=== PATIENT | female | born 1980 | race Caucasian/White ===

== ENCOUNTER → 2018-01-06 14:49 | Outpatient (CLI) | payer MEDICAID, SELFPAY ==
[2018-01-15 11:46] LABS: HPV HC, High Risk Positive (Negative)
== END ==
PROVIDERS: Visit Provider Obstetrics & Gynecology
DX: Z12.4 Encounter for screening for malignant neoplasm of cervix (principal)
CPT/HCPCS: 87624; 88175; G0145

== ENCOUNTER → 2018-01-27 15:34 | Outpatient (CLI) | payer MEDICAID, SELFPAY ==
[2018-01-27 19:36] LABS: Chlamydia Trachomatis by PCR Negative (Negative); Neisserai gonorrhoeae by PCR Negative (Negative); Probe Check PASS; Sample Adequacy Control PASS; Specimen Processing Control PASS
== END ==
PROVIDERS: Visit Provider Obstetrics & Gynecology
DX: Z11.3 Encounter for screening for infections with a predominantly sexual mode of transmission (principal)
CPT/HCPCS: 87491; 87591

== ENCOUNTER 2018-03-01 09:13 | Day surgery (SDC) | payer MEDICAID, SELFPAY ==
--- NOTE | 2018-02-28 21:46 | PCM.HP.BLA ---
History and Physical Date of Admission: 03/01/18 Surgical History and Physical Olivia Titus, a 37 year old female 1 0 0 0 1, presents for Dx H/S, removal impacted IUD, LST with Filsche clips and bilateral distal salpingectomy. -- U/S showed IUD impacted in fundus of uterus. Desires permanent sterilization. She has considered this form of control for quite some time. MEDICATIONS HISTORY: Patient is also takin. ALBUTERAL, Take as Directed 2. Advair Diskus 100 mcg-50 mcg/dose powder for inhalation, As Directed daily 3. Flonase Allergy Relief 50 mcg/actuation nasal spray,suspension, As Directed daily ALLERGIES: macrobid, Visual disturbances, Macrobid and Visual disturbance Infections - Chicken pox and CHILD Illnesses - asthma Accidents - no injuries of consequence Hospitalizations - Childbirth Review of Systems: GENERAL - Denies fever, or chills SKIN - Denies skin changes EYES - Denies visual changes EARS - Denies difficulty hearing NOSE - Denies nasal congestion or bleeding MOUTH - Denies sore throat or difficulty swallowing NECK - Denies pain or swelling RESPIRATORY - Denies shortness of breath or wheezing CARDIOVASCULAR - Denies palpitations or chest pain GASTROINTESTINAL - Denies nausea, vomiting, diarrhea, constipation GENITOURINARY - Denies dysuria, frequency of urination, incontinence of urine MUSCULOSKELETAL - Denies joint or muscle pain NEUROLOGICAL - Denies localized numbness or weakness PSYCHIATRIC - Denies depression or anxiety ENDOCRINE - Denies heat or cold intolerance, weight loss or gain HEMATO-IMMUNOLOGIC - Denies excesive bleeding with cuts SOCIAL HISTORY: Alcohol Use - drinks occasionally Smoking - occasional--advised to quit Diet - balanced Diet Lifestyle - moderate stress lifestyle and Exercise - active Seat Belt Use - always [employer]er - [employer]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 Spouse-Sig Other Occupation - Disability Children Name(s) - [place] Control - Mirena IUD FAMILY HISTORY: Family history of MENTAL RETARDATION. Maternal history of DM II. MENSTRUAL HISTORY: LMP Known?- Mirena IUDAmount/Duration - 1-2 days, Regularity - Irregular, Frequency - 28 days, LMP - 01/27/18 PAST PREGNANCIES: Total Pregnancies - 1; Full Term Pregnancies - 1; Premature - 0; Abortions, Induced - 0; Abortions, Spontaneous - 0; Ectopics - 0; Multiple Births - 0; Living Children - 1 SURGICAL HISTORY: 1. 05/11/1997 [place] Teeth Removal 2. 09/08/2004 D and C ; Arash Katz M.D. - EMILY PHYSICAL EXAM BP- 116/74 Sitting, Right arm, large cuff Weight- 305.24100 lbs Height- 65 inch BMI:50.86 CONSTITUTIONAL - NAD, well nourished, and well developed SKIN - No rash, lesions, or ulcers HEENT - Normocephalic, PERRLA, EOMI NECK - no nodes, no nuchal rigidity and thyroid normal size and texture LYMPH NODES - Palpation of lymph nodes in neck and groins within normal limits LUNGS - CTA x2 without wheezes, crackles or rales CARDIAC - Regular rate and rhythm without rubs, murmurs, or gallops BREAST - no dominant masses, no tenderness, no axillary adenopathy, no nipple discharge and no skin changes ABDOMEN - Without hepatosplenomegaly, distention, masses, rebound, or guarding; normal bowel sounds, no hernias EXTREMITIES - No edema or calf tenderness NEUROLOGICAL - Cranial nerves II-XII grossly intact PSYCHIATRIC - A and O to time, place, person, mood and affect External Genitial Vagina - non-tender without lesions Urethra/Urethral Meatus - non-tender Bladder - non-tender Vagina - vaginal sanford are pink and moist without loss of rugae and no evidence of atropy Cervix - without cervical motion tenderness and has normal size and features without evident lesions and IUD string not seen or felt Uterus - multiparous size 6 cm & wt 75-125 g Adnexa - clear without massess or tenderness ASSESSMENT/PLAN: 1. Surveillance Of Intrauterine Contraceptive Device String not seen or palpated. U/S showed IUD impacted in uterine fundus. Wants permanent sterilization. Plan Dx H/S, IUD removal, L/S BTO with filsche clips and distal bilateral salpingectomy. Discussed RBAs and all questions answered.
[2018-03-01 09:58] VITALS: BP 128/89; PULSE 91; RESP 16; TEMP 37.2; O2SAT 97; BMI 51.0
[2018-03-01 10:01] LABS: Internal QC Validated? YES +Cl - CLEAR BKGD; Pregnancy, Urine Negative Negative
--- NOTE | 2018-03-01 10:03 | EKG12_ITS ---
Test Reason : PRE OP Blood Pressure : / mmHG Vent. Rate : 087 BPM Atrial Rate : 087 BPM P-R Int : 120 ms QRS Dur : 082 ms QT Int : 354 ms P-R-T Axes : 028 047 044 degrees QTc Int : 425 ms Normal sinus rhythm Normal ECG Confirmed by COLLETTE WHITEHEAD, TITA ([id number]), health editor EULA MILLS ([id number]) on 03/05/2018 1:34:56 PM Referred By: Arash Katz Confirmed By:TITA MURDOCK MD
[2018-03-01 10:36] LABS: Hematocrit 40.9 % (37-47); Hemoglobin 13.2 g/dl (12.0-15.0); Mean Corp Hgb Conc 32.3 g/gl (32-36); Mean Corpuscular Volume 86.8 fL (81-99); Mean Platelet Vol. 10.3 fl (6.2-12.0); Platelet Count 254 K/mm3 (150-450); RBC Distribution Width CV 14.4 % (11.6-14.6); RBC Distribution Width SD 45.5 fl (35.1-43.9); Red Blood Count 4.71 M/mm3 (4.2-5.4); White Blood Count 8.9 K/mm3 (4.4-11.0)
[2018-03-01 10:40] LABS: International Normalized Ratio 1.1; Partial Thromboplast Time 31.2 Seconds (24.1-36.2); Prothrombin Time (Protime)PT. 14.2 SECONDS (11.7-14.9)
--- NOTE | 2018-03-01 10:45 | EMB_PTH ---
PATIENT: CATHERINE BURR LOC: [facility] – [place] U#:[id number] AGE/SX: 37/F ROOM: RE03/01/[address]: Dr. Arash Katz MD : 1980 BED: DIS: 03/01/2018 SPEC #: [id number] RECD: 03/01/18 16:12 STATUS: JORDAN VITOR #: [id number] SAMMI: 03/01/18 10:[address]: Arash Katz DEPT: SURGICAL PATHOLOGY RECD BY: Yony Stein ENTERED: 03/02/18 11:46 SP TYPE: ENDOM BX/C CAMILO DR: WANDA SanchesC Tissues: A - Endometrium, NOS B - Fallopian tube Procedures: Surgery Specimen Level II Surgery Specimen Level IV HEADER OPERATION: IUD removal, dilation and curettage PRE-OP DIAGNOSIS: Surveillance of intrauterine contraceptive device; desire for sterilization TISSUE SUBMITTED: A - Endometrial curettings, B - Bilateral fallopian tubes MICROSCOPIC DIAGNOSIS A. Endometrial curettings: Extensive exogenous hormone effects. Fragments of benign endocervical mucosa with chronic inflammation and fragments of benign ectocervical epithelium. Intrauterine device (gross only). B. Bilateral fallopian tubes, salpingectomy: Bilateral fallopian tubes including fimbrial ends, no pathologic diagnosis. MIGUEL A:yazan 03/03/18 MICROSCOPIC DESCRIPTION Slides are reviewed. GROSS DESCRIPTION A - Received in fixative is one container labeled with the patient's name and designated endometrial curettings. The specimen consists of multiple fragments of hemorrhagic soft tissue mixed with blood clot that in aggregate measure 5 x 3 x 0.8 cm. Also present in the container is a T-shaped white intrauterine device. The horizontal arm measures 3 cm in length and vertical arm measures 3 cm in length. A black two-prong suture is also present measuring 5.5 cm in length. The entire specimen is submitted in five cassettes. Intrauterine device is for gross identification only. B - Received is one container labeled with the patient's name and designated bilateral fallopian tubes. The specimen consists of bilateral fallopian tubes including fimbrial ends measuring 4 cm in length and 0.6 cm in diameter and 5 cm in length and 0.6 cm in diameter. Sections do not reveal any mass lesion. The fallopian tubes are not identified as right or left. Sections reveal unremarkable cut surfaces. Rehab Technician sections are submitted in two cassettes with each cassette containing one fallopian tube. / MIGUEL A:ayzan 03/02/18 TC:5 CPT: 96328 x2, 50033
[2018-03-01 10:47] LABS: Scan Indicated on CBC? Y/N NO
--- NOTE | 2018-03-01 11:11 | OP.PCM_ITS ---
Operative Report Date of Procedure: 03/01/18 Surgeon: Arash Katz MD, FACOG Stock Unloader: JENNIFER Smith Anesthesia: Saroj Alvarado CRNA Type of Anesthesia: General Endotracheal Pre-Op Diagnosis: Desires Sterilization, Impacted IUD Postoperative diagnosis: Desires Sterilization, Impacted IUD Procedure: Bilateral Laparoscopic Tubal Occlusion with Filshie Clips and Partial Bilateral Distal Salpingectomy, Dilation and Curettage, Removal of Impacted IUD Findings: 8 cm uterus with normal appearing fallopian tubes and ovaries. 8 cm endometrial cavity with no polyps or fibroids noted but the lining was thickened for an IUD being present. Mirena IUD noted at fundus of uterus and removed without difficulty with polyp forceps. Cervix noted to be high in vagina which would make vaginal hysterectomy technically difficult unless performed robotically. Indications: This is a 37 year old patient who has the above diagnosis. She has considered sterilization for quite some time. She is aware of the permanent nature of the procedure, the failure rate of 1-2%, and the availability of other nonpermanent control options. All questions were answered to reconsider the patient well-informed. Procedure: The patient was taken to the operating room where after induction of general anesthesia, she was placed in the dorsolithotomy position and prepped and draped in the usual sterile fashion. The bladder was drained of approximately 50 cc of clear yellow urine with a catheter. Anterior cervix was grasped with the tenaculum and dilated to about 4-5 mm. Cervix was dilated to about 4-5 mm and uterus and after the IUD was removed the uterus was gently curetted removing all contents. Conn cannula was placed and attention was turned toward the laparoscopic portion of the procedure. Approximately 30 cc of half percent ropivacaine was injected subumbilically suprapubically and midway between. A 5 mm bladeless trocar was placed subumbilically and intraperitoneal placement confirmed. After CO2 insufflation was complete, a 7/8 mm bladeless trocar was introduced suprapubically. The above findings were noted. A micro-grasper alligator was then placed midway between these 2 ports for tubal manipulation. Each fallopian tube was identified to its fimbriated end and an Enseal device was used to divide the mesosalpinx leaving approximately 1-2 cm stump of fallopian tube on each side. Filshie clips were placed on the stump of each fallopian tube. The peritoneal cavity and upper abdomen were examined and noted to be normal. Photographs were taken. Laparoscopic instruments with as much CO2 gas as possible were removed and incisions were closed with interrupted 4-0 Monoc[address] suture. Steri-Strips pl aced across the incisions. Patient tolerated procedure well was taken to recovery room in satisfactory condition sponge instrument and needle counts were all reportedly correct. Estimated blood loss for the case was minimal. There were no apparent complications of the surgery. Cefotan 2 g IV was given prior to beginning the operative procedure. Specimens to pathology was bilateral distal fallopian tubes and endometrial curettings with IUD.
--- NOTE | 2018-03-01 11:12 | DCINST_ITS ---
Discharge Diet: No Restrictions - Increase fluid intake for the next 48 hours. Discharge Activity: Return to Normal Activity, May Drive - when you are no longer taking pain/narcotic medicines., May Shower, May Take a Tub Bath May resume sexual activity in: 2 weeks Additional Activity Instructions:: Ambulate often the next week after surgery. Nothing in the vagina for 5 days. Call your doctor if your incision/area has: Continuous Slow Oozing, Sudden Increased Bleeding, Increased Pain/ Swelling, Increased Redness, Foul Smelling Discharge Call your doctor if you observe: Fever of 101 or Higher, Inability to urinate, Inability to have a bowel movement, Using more than one pad per hour Allergies/Adverse Reactions: Allergies nitrofurantoin [From Macrobid] Adverse Reaction (Verified 02/26/18 10:43) Other Medications to take at Discharge Albuterol Inhaler [Ventolin Hfa (SP)] 1 - 2 puff INHALATION Q4H PRN PRN 02/26/18 Fluticasone 0.05% [Flonase Nasal [place]] 2 spray NASAL DAILY 02/26/18 Fluticasone/Salmeterol [Advair 100-50 Diskus] 1 puff IH DAILY 02/26/18 Omeprazole [Prilosec] 40 mg PO DAILY 02/26/18 Hydrocodone/Acetaminophen [Plato 5-325 Tablet] 1 ea PO Q6H PRN PRN 7 Days #10 tab 03/01/18 The following prescriptions were given: Hydrocodone/Acetaminophen [Plato 5-325 Tablet] 1 ea PO Q6H PRN PRN 7 Days #10 tab PRN Reason: Severe Pain (6-10/10) Orders to be completed after discharge: 12 Lead EKG [CVS] Time Frame: 03/01/18, Facility: [facility], Location: [place] [facility] Primary Care Physician: Flora Sales NP-C [Primary Care Provider] - Test Results: Test results from this visit will be discussed in further detail at your follow- up appointment, if applicable. Please Follow Up With: Arash Katz MD - [phone] When: 2-3 weeks
[2018-03-01] MEDS: Ropivacaine 0.5% 30 ML Vial (12:01)
[2018-03-01 12:40] VITALS: BP 114/76; BP 128/89; PULSE 69; RESP 16; TEMP 36.2; O2SAT 100
[2018-03-01 12:45] VITALS: BP 128/89; BP 133/71; PULSE 87; RESP 16; O2SAT 92
[2018-03-01 13:00] VITALS: BP 128/89; BP 143/59; PULSE 75; RESP 16; O2SAT 93
[2018-03-01 13:14] VITALS: BP 128/89; BP 132/56; PULSE 76; RESP 16; TEMP 35.8; O2SAT 92
[2018-03-01] MEDS: HYDROcodone Bitartrate/Apap 5/325 Tablet PO (13:35)
[2018-03-01 14:40] VITALS: BP 124/61; BP 128/89; PULSE 80; RESP 18; TEMP 38.1; O2SAT 93
== END 2018-03-01 14:55 | disposition home or self-care (01) ==
LOC: SDC 09:16 → AC 09:17
PROVIDERS: Family Provider Nurse Practitioner Family; PCP Nurse Practitioner Family; Referring Provider Obstetrics & Gynecology; Visit Provider Obstetrics & Gynecology
PROC: 0UDB8ZZ Extraction of Endometrium, Via Natural or Artificial Opening Endoscopic (ICD-10-PCS; CPT 58558; principal; 2018-03-01 10:30)
PROC: (CPT 58671; 2018-03-01 10:30)
DX: Z30.2 Encounter for sterilization (principal); T83.89XA Other specified complication of genitourinary prosthetic devices, implants and grafts, initial encounter; Y76.8 Miscellaneous obstetric and gynecological devices associated with adverse incidents, not elsewhere classified; E66.01 Morbid (severe) obesity due to excess calories; Z68.43 Body mass index [BMI] 50.0-59.9, adult; J45.909 Unspecified asthma, uncomplicated; Z87.891 Personal history of nicotine dependence
CPT/HCPCS: 00851; 58301; 58615; 58661; 81025; 85027; 85610; 85730; 86850; 86900; 88302; 88305; 93005; J7120; C1760; J2405

== ENCOUNTER → 2018-03-04 21:11 | Outpatient (CLI) | payer MEDICAID, SELFPAY | PROVIDERS: Family Provider Nurse Practitioner Family; PCP Nurse Practitioner Family; Referring Provider Obstetrics & Gynecology; Visit Provider Obstetrics & Gynecology | DX: R30.0 Dysuria (principal) | CPT/HCPCS: 87077; 87086; 87088; 87186 ==

== ENCOUNTER → 2018-03-24 15:12 | Outpatient (CLI) | payer MEDICAID, SELFPAY | PROVIDERS: Visit Provider Obstetrics & Gynecology | DX: R30.0 Dysuria (principal) | CPT/HCPCS: 87086; 87088 ==

== ENCOUNTER 2018-07-19 06:26 | Day surgery (SDC) | payer MEDICAID, SELFPAY ==
[2018-07-15 11:25] LABS: Hemoglobin 13.9 g/dl (12.0-15.0); Mean Corp Hgb Conc 30.9 g/gl (32-36); Mean Corpuscular Hgb 27.7 pg (27.0-32.0); Mean Corpuscular Volume 89.8 fL (81-99); Mean Platelet Vol. 11.2 fl (6.2-12.0); Platelet Count 275 K/mm3 (150-450); RBC Distribution Width SD 49.1 fl (35.1-43.9); Red Blood Count 5.01 M/mm3 (4.2-5.4); White Blood Count 8.1 K/mm3 (4.4-11.0)
[2018-07-15 11:26] LABS: Scan Indicated on CBC? Y/N NO
[2018-07-15 11:34] LABS: International Normalized Ratio 1.1; Prothrombin Time (Protime)PT. 13.7 SECONDS (11.7-14.9)
[2018-07-15 11:35] LABS: Partial Thromboplast Time 28.9 Seconds (24.1-36.2)
[2018-07-15 11:52] LABS: Creatinine, Serum 0.86 mg/dL (0.55-1.02); EST Glomerular Filtration Rate 78 mL/min (>60); Est Glom Filt Rate - Afr Amer 95 mL/min (>60)
[2018-07-15 11:55] LABS: Pregnancy, Serum, hCG Quali. NEGATIVE Negative (0-9 Nonpreg)
--- NOTE | 2018-07-18 21:35 | PCM.HP.BLA ---
History and Physical Date of Admission: 07/19/18 Surgical History and Physical Olivia Titus, a 38 year old female 1 0 0 0 1, presents for [facility] on July 19, 2018 at 8:30. -- Menorrhagia not relieved with D and C -- Had Lap BTO with Filshie Clips, Distal Bilateral Salpingectomy, BPS and Dilatation and Curettage on 03-01-18. Reports has had bleeding since surgery. PT states she is bleeding through super plus tampons. Going through 5 in a 12 hr period. passing clots also; D and C in Mar 28 removed copious amount of benign tissue; menorrhagia has persisted. MEDICATIONS HISTORY: Patient is also takin. ALBUTERAL, Take as Directed 2. Advair Diskus 100 mcg-50 mcg/dose powder for inhalation, As Directed daily 3. Flonase Allergy Relief 50 mcg/actuation nasal spray,suspension, As Directed daily 4. omeprazole 40 mg capsule,delayed release, One pill by mouth once a day ALLERGIES: macrobid, Visual disturbances, Macrobid and Visual disturbance Infections - Chicken pox and CHILD Illnesses - asthma Accidents - no injuries of consequence Hospitalizations - Childbirth Review of Systems: GENERAL - Denies fever, or chills SKIN - Denies skin changes EYES - Denies visual changes EARS - Denies difficulty hearing NOSE - Denies nasal congestion or bleeding MOUTH - Denies sore throat or difficulty swallowing NECK - Denies pain or swelling RESPIRATORY - Denies shortness of breath or wheezing CARDIOVASCULAR - Denies palpitations or chest pain GASTROINTESTINAL - Denies nausea, vomiting, diarrhea, constipation GENITOURINARY - Denies dysuria, frequency of urination, incontinence of urine MUSCULOSKELETAL - Denies joint or muscle pain NEUROLOGICAL - Denies localized numbness or weakness PSYCHIATRIC - Denies depression or anxiety ENDOCRINE - Denies heat or cold intolerance, weight loss or gain HEMATO-IMMUNOLOGIC - Denies excessive bleeding with cuts SOCIAL HISTORY: Alcohol Use - drinks occasionally Smoking - occasional--advised to quit Diet - balanced Diet Lifestyle - moderate stress lifestyle and Exercise - active Seat Belt Use - always 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 Spouse-Sig Other Occupation - Disability Children Name(s) - [place] Control - Prior Tubal FAMILY HISTORY: Family history of MENTAL RETARDATION. Maternal history of DM II. MENSTRUAL HISTORY: LMP Known?- DefiniteAmount/Duration - 5 days, Regularity - Regular, Frequency - 28 days, LMP - 06/30/18 PAST PREGNANCIES: Total Pregnancies - 1; Full Term Pregnancies - 1; Premature - 0; Abortions, Induced - 0; Abortions, Spontaneous - 0; Ectopics - 0; Multiple Births - 0; Living Children - 1 SURGICAL HISTORY: 1. 05/11/1997 [place] Teeth Removal 2. 09/08/2004 D and C ; Arash Katz M.D. - AUB 3. 03/01/2018 Lap BTO with filshie and BPS, D and C, Removal of IUD ; Arash Katz M.D. PHYSICAL EXAM BP- 100/80 Sitting, Right arm, large cuff Weight- 282.41582 lbs Height- 65.00 inch BMI:47.09 CONSTITUTIONAL - NAD, well nourished, and well developed SKIN - No rash, lesions, or ulcers HEENT - Normocephalic, PERRLA, EOMI NECK - no nodes, no nuchal rigidity and thyroid normal size and texture LYMPH NODES - Palpation of lymph nodes in neck and groins within normal limits LUNGS - CTA x2 without wheezes, crackles or rales CARDIAC - Regular rate and rhythm without rubs, murmurs, or gallops BREAST - no dominant masses, no tenderness, no axillary adenopathy, no nipple discharge and no skin changes ABDOMEN - Without hepatosplenomegaly, distention, masses, rebound, or guarding; normal bowel sounds, no hernias EXTREMITIES - No edema or calf tenderness NEUROLOGICAL - Cranial nerves II-XII grossly intact PSYCHIATRIC - A and O to time, place, person, mood and affect External Genital Vagina - non-tender without lesions Urethra/Urethral Meatus - non-tender Bladder - increased tenderness Vagina - vaginal sanford are pink and moist without loss of rugae and no evidence of atropy and small amount of blood in vagina Cervix - without cervical motion tenderness and has normal size and features without evident lesions Uterus - multiparous size 6 cm & wt 75-125 g Adnexa - clear without masses or tenderness ASSESSMENT/PLAN: 1. Menorrhagia Given no relief from D and C doubt that this with an ablation will solve menorrhagia. Given this, pt desires we proceed with JENARO. Discussed RBAs and all questions answered.
[2018-07-19] VITALS (11 sets, daily range): BP systolic 92–138; BP diastolic 52–77; PULSE 63–95; RESP 15–18; TEMP 36.4–37.2; O2SAT 92–98; BMI 46.7
--- NOTE | 2018-07-19 08:30 | HYST_PTH ---
PATIENT: CATHERINE BURR LOC: [facility] – [place] U#:[id number] AGE/SX: 38/F ROOM: RE07/19/[address]: Dr. Arash Katz MD : 1980 BED: DIS: 07/20/2018 SPEC #: [id number] RECD: 07/19/18 13:47 STATUS: JORDAN VITOR #: [id number] SAMMI: 07/19/18 08:[address]: Arash Katz DEPT: SURGICAL PATHOLOGY RECD BY: Deana Hernandez ENTERED: 07/19/18 14:05 SP TYPE: HYSTERECT OTHR DR: Flora Sales, [employer] [employer] [facility]-C Tissues: Uterus, NOS Procedures: Surgery Specimen Level V HEADER OPERATION: Lap robotic hysterectomy PRE-OP DIAGNOSIS: Menorrhagia TISSUE SUBMITTED: Uterus MICROSCOPIC DIAGNOSIS Uterus, hysterectomy: Cervix - chronic inflammation and squamous metaplasia. Endometrium - proliferative endometrium. Myometrium - focal superficial adenomyosis. - Focal area suggestive of subserosal endometriosis. 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 MICROSCOPIC DESCRIPTION Slides are reviewed. GROSS DESCRIPTION Received in fixative is one container labeled with the patient's name and designated uterus. The specimen consists of a uterus with attached cervix without fallopian tubes or ovaries. The specimen measures 10 x 6 x 5 cm and weighs 95 gm. The ectocervix is unremarkable. The cervical os is oval in contour. Two Filshie type clips are present and are intact without breaks or tears. These are attached to the uterus in the presumed proximal portion attached to fallopian tubes. The endocervical canal measures 3.3 cm in length and is grossly unremarkable. The triangular endometrial cavity measures 3.7 x 3 cm. The velvety, reddish-stanton endometrium measures up to 0.2 cm in thickness. The myometrium measures 2.2 cm in greatest thickness and is free of mass lesions. Citizenship Teacher sections are submitted as follows: 1 - anterior cervix, 2 - posterior cervix, 3 & 4 - anterior uterine wall, 5 & 6 - posterior uterine wall. / AM:yazan 07/19/18 Rest of the cervix is submitted in four more cassettes as follows: 7 & 8 - anterior cervix, 9 & 10 - posterior cervix. / SJ:yazan 07/20/18 TC:5 CPT: 41916
--- NOTE | 2018-07-19 09:09 | OP.PCM_ITS ---
Report of Operation Date of Procedure: 07/19/18 Pre-Operative Diagnosis: Menorrhagia Post-Operative Diagnosis: Menorrhagia And Endometriosis Surgery/Procedure Performed:: Robotic Assisted Vaginal Hysterectomy Description of Surgical Findings:: 10 cm uterine cavity with absent fallopian tubes. Normal-appearing ovaries. Fallopian tubes with Filshie clips on end of 1-2 cm stumps. Some 0.25 cm endometriosis implants were noted in the left cul-de-sac near the uterosacral ligaments. manager internal: Morro Beavers Type of Anesthesia:: General - Endotracheal Anesthesiologist: Temo Austin Specimen's removed: Uterus Drains: Storey to straight drain Estimated Blood Loss (mL): Minimal Fluids Replaced: Crystalloid Description of Procedure: Surgeon: Arash Katz MD, FACOG Indication: This is a 38 year old patient who has been having problems with menorrhagia. A D&C did not help with this problem. Other conservative measures such as a Mirena IUD have not been helpful. The patient has been counseled regarding the risks, benefits and alternatives of this procedure including the possibility of bleeding, infection, and injury to surrounding structures such as bowel bladder and all questions were answered. She understands that if BSO is needed that she will need to be on HRT for an indefinite period of time. Procedure: Pt taken to the operating room where after induction of general anesthesia the patient was prepped and draped in the usual sterile fashion and placed on a non-slip Huggy-u-vac device. Trendendelenburg test was satisfactory. Bladder was drained of urine with a Storey catheter which was left in place. Anterior cervix grasped and cervix was dilated to about 3-4 mm. Uterus sounded to 10 cms. 0-Vicryl suture was placed at the 3:00 and 9:00 position of the cervix. A large V-care device was then placed in the uterus to allow uterine manipulation and attention was turned to the laparoscopic portion of the procedure. Ropivocaine 0.5% was injected approximately 2-3 cm superior to the umbilicus and an 8 mm robotic camera port was introduced directly with intraperitoneal placement confirmed with insufflation. 8 mm robotic side ports were introduced under direct visualization approximately 11.5 cm lateral and 2 cm inferior to the umbilical port. A 5 mm left upper quadrant port was introduced and airseal insufflation with CO2 was started. The above findings were noted. Robot was docked without difficulty and attention turned to the robotic portion of the procedure. Approximately 30 cc of Ropivicaine was used. Bilateral utero-ovarian ligaments were ligated with 35 alarcon bipolar coagulation including the round ligament. The posterior aspect of the cervix was identified and then opened for about 1 cm using 25 watt monopolar cautery identifying the V-care device which had been placed vaginally. Bladder flap was opened and divided to the level of the round ligaments using monopolar cautery. Progressive bites were then ligated on each side of the cervix with 35 alarcon bipolar cautery to the uterine arteries. The anterior vaginal mucosa was then entered and cervix circumscribed with monopolar cautery. Uterus and attached ovaries and tubes were then removed through the vagina. Vaginal cuff was closed first with 0-Vicryl Gil stitches placed at each angle followed by closure of the mid-cuff with 0-Monocryl V-lock suture in two layers. Pelvis was copiously irrigated with saline and the right and left ureters virk noted to peristalse. Robot was undocked and trocars were removed with as much gas as possible. Incisions were closed with 4-0 Monocryl subcuticular sutures and incisions covered with steri-strips and opsite dressing. The patient tolerated the procedure well and was taken to the recovery room in satisfactory condition. Sponge, instruments and needle counts were all correct. There were no apparent complications of the surgery. Cefotan 2 gms IV was given prior to the procedure. Estimated Blood Loss: Minimal Specimen to Pathology: Uterus Grafts/Implants Used: None - Complications None - Admit VTE Documentation VTE Present on Admission: Yes VTE Mechan Device Prophylaxis: SCD's VTE Pharm Prophylaxis ordered?: Yes
--- NOTE | 2018-07-19 09:10 | DCINST_ITS ---
Discharge Diet: No Restrictions Discharge Activity: Return to Normal Activity, May Not Drive - while taking narcotic pain medications., May Shower May resume sexual activity in: 6-8 weeks Call your doctor if your incision/area has: Continuous Slow Oozing, Sudden Increased Bleeding, Increased Pain/ Swelling, Increased Redness, Foul Smelling Discharge Call your doctor if you observe: Fever of 101 or Higher, Inability to urinate, Inability to have a bowel movement, Using more than one pad per hour Allergies/Adverse Reactions: Allergies nitrofurantoin [From Macrobid] Adverse Reaction (Verified 07/12/18 09:42) Other Medications to take at Discharge Albuterol Inhaler [Ventolin Hfa (SP)] 1 - 2 puff INHALATION Q4H PRN PRN 02/26/18 Fluticasone 0.05% [Flonase Nasal [place]] 2 spray NASAL DAILY 02/26/18 Fluticasone/Salmeterol [Advair 100-50 Diskus] 1 puff IH DAILY 02/26/18 Omeprazole [Prilosec] 40 mg PO DAILY 02/26/18 Lisdexamfetamine Dimesylate [Vyvanse] 40 mg PO DAILY 07/12/18 Docusate Sodium [Colace] 100 mg PO BID PRN PRN #60 cap 07/19/18 Oxycodone [Oxyir] 5 mg PO Q6H PRN PRN 7 Days #20 tab 07/19/18 The following prescriptions were given: Oxycodone [Oxyir] 5 mg PO Q6H PRN PRN 7 Days #20 tab PRN Reason: Severe Pain (-02/17) Docusate Sodium [Colace] 100 mg PO BID PRN PRN #60 cap PRN Reason: Constipation Orders to be completed after discharge: CBC-Complete Blood Cnt No Diff Time Frame: 07/12/18, Location: Laboratory Primary Care Physician: Flora Sales NP-C [Primary Care Provider] - Test Results: Test results from this visit will be discussed in further detail at your follow- up appointment, if applicable. Please Follow Up With: Arash Katz MD When: 2 weeks
[2018-07-19] MEDS: Ropivacaine 0.5% 30 ML Vial (10:15)
[2018-07-19] MEDS: Dextrose 5%-Lactated Ringers 1,000 ML 150 ML IV ×2 (12:46→19:49)
[2018-07-19] MEDS: Ketorolac 30 MG/ML Syringe IV ×2 (15:00→21:48)
[2018-07-19] MEDS: Acetaminophen 500 MG Tablet 1000 MG PO (18:10)
[2018-07-19] MEDS: Enoxaparin 40 MG/0.4 ML Syringe SC (18:11)
[2018-07-19] MEDS: 0.9% NaCl Peripheral Flush Adult/Peds IV (21:50)
[2018-07-20] MEDS: Acetaminophen 500 MG Tablet 1000 MG PO (02:20)
[2018-07-20] MEDS: Dextrose 5%-Lactated Ringers 1,000 ML 150 ML IV ×2 (02:22→08:23)
[2018-07-20 02:25] VITALS: BP 95/59; PULSE 70; RESP 16; TEMP 36.8; O2SAT 96
[2018-07-20] MEDS: Ketorolac 30 MG/ML Syringe IV ×2 (02:49→08:24)
[2018-07-20] MEDS: 0.9% NaCl Peripheral Flush Adult/Peds IV (02:49)
[2018-07-20] MEDS: oxyCODONE 5 MG Tablet PO ×2 (06:06→09:56)
[2018-07-20 06:20] LABS: Hematocrit 37.1 % (37-47); Hemoglobin 11.3 g/dl (12.0-15.0); Mean Corp Hgb Conc 30.5 g/gl (32-36); Mean Corpuscular Volume 92.1 fL (81-99); Mean Platelet Vol. 11.4 fl (6.2-12.0); Platelet Count 231 K/mm3 (150-450); RBC Distribution Width CV 14.9 % (11.6-14.6); RBC Distribution Width SD 49.3 fl (35.1-43.9); Red Blood Count 4.03 M/mm3 (4.2-5.4); White Blood Count 12.9 K/mm3 (4.4-11.0)
[2018-07-20 06:38] LABS: Creatinine, Serum 0.81 mg/dL (0.55-1.02); EST Glomerular Filtration Rate 84 mL/min (>60); Est Glom Filt Rate - Afr Amer 101 mL/min (>60); Estimated Creatinine Clearance 83.91 ml/min
[2018-07-20 06:46] LABS: Scan Indicated on CBC? Y/N NO
[2018-07-20 07:33] VITALS: PULSE 78; RESP 17; O2SAT 97
[2018-07-20] MEDS: Albuterol 2.5 MG/3 ML VIAL.NEB. INHALATION (07:33)
[2018-07-20] MEDS: Budesonide Respules 0.5 MG/2 ML AMPUL.NEB. INHALATION (07:33)
[2018-07-20 07:59] VITALS: BP 112/84; PULSE 65; RESP 18; TEMP 36.9; O2SAT 98
--- NOTE | 2018-07-20 08:49 | PCM.PN.OB ---
Subjective: Patient without complaints. Minimal vaginal bleeding. Pain well controlled. Storey out but has not voided yet. - Physical Exam Vital Signs Temp Pulse Resp BP Pulse Ox 98.5 F 65 18 112/84 H 98 07/20/18 07:59 07/20/18 07:59 07/20/18 07:59 07/20/18 07:59 07/20/18 07:59 Oxygen Flow Rate (L/min) 2 Oxygen Delivery Method Room Air Weight: 281 lb 4.957 oz Body Mass Index (BMI) 46.7 Intake and Output for Last 24 Hours 07/18/18 07/19/18 07/20/18 23:59 23:59 23:59 Intake Total 4570 / 4570 2028 / 2028 Output Total 650 / 650 950 / 950 Balance 3920 / 3920 1079 / 1079 Laboratory Tests Past 24 Hrs 07/20/18 07/20/18 05:20 05:20 WBC 12.9 H RBC 4.03 L Hgb 11.3 L Hct 37.1 MCV 92.1 MCH 28.0 MCHC 30.5 L RDW 14.9 H RDW Differential 49.3 H Plt Count 231 MPV 11.4 Creatinine 0.81 Estim Creat Clear Calc 83.91 Est GFR (MDRD) Af Amer 101 Est GFR (MDRD) Non-Af 84 Wounds are clean, dry, intact. Good urine output. Hemoglobin and creatinine okay. Medical Necessity - Tobacco Use Smoking Status: Former smoker Assessment/Plan Doing well postoperative day #1 status post robotic assisted vaginal hysterectomy. Will release to home with routine instructions.
[2018-07-20] MEDS: Fluticasone 0.05% 1 SPRAY NASAL.SRY 2 SPRAY NASAL (09:50)
[2018-07-20] MEDS: Pantoprazole Sodium 40 MG Tablet PO (09:51)
[2018-07-20 11:25] VITALS: BP 101/70; PULSE 79; RESP 18; TEMP 37.2; O2SAT 98
== END 2018-07-20 12:23 | disposition home or self-care (01) ==
LOC: SDC 06:26 → AC 06:26 → MS2 09:12
PROVIDERS: Family Provider Nurse Practitioner Family; PCP Nurse Practitioner Family; Referring Provider Obstetrics & Gynecology; Visit Provider Obstetrics & Gynecology
PROC: 0UT94ZZ Resection of Uterus, Percutaneous Endoscopic Approach (ICD-10-PCS; CPT 58571; principal; 2018-07-19 08:10)
DX: N80.0 Endometriosis of uterus (principal); N92.0 Excessive and frequent menstruation with regular cycle; J45.909 Unspecified asthma, uncomplicated; Z87.891 Personal history of nicotine dependence; K21.9 Gastro-esophageal reflux disease without esophagitis; G47.30 Sleep apnea, unspecified
CPT/HCPCS: 00940; 58571; S2900; 36415; 82565; 84703; 85027; 85610; 85730; 86850; 86900; 88307; 94640; J7120; A4216; J2405